=== PATIENT | male | born 1965 | race Caucasian/White ===

== ENCOUNTER 2018-11-08 06:37 | Day surgery (SDC) | payer BC ==
[~2018-11-08] VITALS: Ht 170.2 cm; Wt 70.9 kg
[2018-11-08] MEDS ORDERED: LACTATED RINGERS 1,000 ML IV SCH (07:14)
[2018-11-08 07:36] VITALS: BP 109/70
[2018-11-08] MEDS ORDERED: NONE PER PT (07:36)
[2018-11-08] MEDS ORDERED: HYDROmorphone 2 MG/ML, 1ML IVPush PRN (08:00)
[2018-11-08] MEDS ORDERED: MIDAZOLAM 1 MG/ML, 2ML IV PRN (08:00)
[2018-11-08] MEDS ORDERED: ACETAMINOPHEN 325 MG TABLET PO PRN (08:00)
[2018-11-08] MEDS ORDERED: ALBUTEROL/IPRATROPIUM 2.5MG/0.5MG, 3 ML NPPB PRN (08:00)
[2018-11-08] MEDS ORDERED: METOPROLOL 1 MG/ML, 5ML IV PRN (08:00)
[2018-11-08] MEDS ORDERED: OXYcodone 5 MG/5 ML ORAL.SOL UDC PO PRN (08:00)
[2018-11-08] MEDS ORDERED: ONDANSETRON 2MG/ML, 2ML IV PRN (08:00)
[2018-11-08] MEDS ORDERED: MEPERIDINE/PF 25MG/0.5ML IVPush PRN (08:00)
[2018-11-08] MEDS ORDERED: FENTANYL PF 100 MCG/2ML IV PRN (08:00)
[2018-11-08] MEDS ORDERED: PROPOFOL 10 MG/ML, 20ML ONE (08:39)
== END 2018-11-08 10:15 | disposition home or self-care (01) ==
LOC: OUT 06:37
PROVIDERS: ATTEND Surgery
DX: Z09 Encounter for follow-up examination after completed treatment for conditions other than malignant neoplasm (principal); K63.89 Other specified diseases of intestine; Z93.3 Colostomy status; Z72.89 Other problems related to lifestyle
CPT/HCPCS: 44388; J2704; J7120